=== PATIENT | male | born 2000 | race Caucasian/White ===

== ENCOUNTER 2024-08-16 20:46 | Emergency (ER) | payer OTHER ==
[2024-08-16] MEDS ORDERED: Dexamethasone 10 MG/ML VIAL ONE (21:04)
== END 2024-08-16 21:17 | disposition home or self-care (01) ==
LOC: ERS 20:46
DX: H73.93 Unspecified disorder of tympanic membrane, bilateral (principal); H92.03 Otalgia, bilateral
CPT/HCPCS: 99282; J1100